=== PATIENT | female | born 1985 | race Asian ===

== ENCOUNTER 2023-02-10 09:12 | Emergency (ER) | payer BC ==
[~2023-02-10] VITALS: Ht 162.6 cm; Wt 77.1 kg
[2023-02-10 09:19] VITALS: BP 121/72; PULSE 64; RESP 16; TEMP 98; O2SAT 99
[2023-02-10 09:45] VITALS: BP 121/72; PULSE 64; RESP 16; TEMP 98; O2SAT 99
== END 2023-02-10 10:06 | disposition left against medical advice (07) ==
LOC: MED 09:12
DX: H57.11 Ocular pain, right eye (principal); Z53.21 Procedure and treatment not carried out due to patient leaving prior to being seen by health care provider
CPT/HCPCS: 99281